=== PATIENT | male | born 1970 | race Caucasian/White ===

== ENCOUNTER 2021-02-24 11:31 | Emergency (ER) | payer SELFPAY ==
[~2021-02-24] VITALS: Ht 177 cm; Wt 108.0 kg
[~2021-02-24 11:31] MED LIST: CYCL10TA9 PO; IBUP800T26 PO; MPR22T TOP; NAPR-243 PO; OXYC-12 PO; SULF-222 PO; SULF1TAB35 PO; TRM50T PO
[2021-02-24] MEDS ORDERED: TETRACAINE 0.5% OPHTH SOLN 4 ML BTL (SINGLE DOSE ONLY) ONE (11:43)
[2021-02-24] MEDS ORDERED: FLUORESCEIN (FLUOR-I-STRIPS) 1 MG STRP ONE (11:43)
--- NOTE | 2021-02-24 11:56 | ED EENT ---
History of Present Illness General Chief Complaint: Eye Problems Stated Complaint: L EYE RED Source: patient Exam Limitations: no limitations History of Present Illness Date Seen by Provider: Feb 24, 2021 Time Seen by Provider: 11:53 Initial Comments To ER with left eye redness since he went fishing few days ago. He does not recall any injury to the nor does he recall any insect flying into the eye or pain or itching of the eye. He was returning home from fishing when his friend noticed that his eye was red. Today, he notices a little unusual sensation in the eye no pain in his vision is normal. Does not wear contacts or glasses Timing/Duration: abrupt Severity: moderate Location: ear (L) Associated Symptoms: denies symptoms Allergies and Home Medications Allergies Coded Allergies: NKANo Known Allergies (Unverified Allergy, Mild, 07/15/09) Home Medications Ibuprofen 800 Mg Tablet, 800 MG PO q8h PRN for PAIN Prescribed by: GLORIA NORMAN on 11/22/14658 Mupirocin 22 Gm Tube, 22 GM TOP BID Prescribed by: NALDO DOZIER on 02/09/142 Naproxen 500 Mg Tablet, 1 EACH PO TID FOR PAIN Prescribed by: NALDO DOZIER on 07/15/09 0946 Oxycodone Hcl/Acetaminophen 1 Each Tablet, 1-2 EACH PO Q6H PRN for PAIN Prescribed by: GLORIA NORMAN on 11/22/14658 Sulfamethoxazole/Trimethoprim 1 Each Tablet, 1 TAB PO BID FOR INFECTION Prescribed by: NALDO DOZIER on 02/09/14 2312 Trimethoprim/Sulfamethoxazole 1 Ea Tablet, 1 EA PO BID Prescribed by: GLORIA NORMAN on 11/22/14658 Patient Home Medication List Home Medication List Reviewed: Yes Review of Systems Review of Systems Constitutional: see HPI Eyes: See HPI Ears: No Symptoms Reported Nose: no symptoms reported Mouth: no symptoms reported Throat: no symptoms reported Respiratory: no symptoms reported Cardiovascular: no symptoms reported Musculoskeletal: no symptoms reported Past Npbbfhb-Qofwsr-Ekkfjt Hx Immunizations Up To Date Tetanus Booster (TDap): Less than 5yrs Past Medical History Reproductive Disorders: No Sexually Transmitted Disease: No HIV/AIDS: No Adverse Reaction/Blood Tranf: No Family Medical History No Pertinent Family Hx Physical Exam Height, Weight, BMI Height: 5'10" Weight: 210lbs. oz. 95.834896ry; BMI Method:Stated General Appearance: WD/WN, no apparent distress Eyes: left eye other (There is no hyphema. There is a subconjunctival hemorrhage to the lateral aspect of the left eye. A small area of this about 1 x 2 mm is slightly elevated and darker, this was likely the initial vessel the cause of this. The blood has subsequently reached out to affect most of the lateral aspect of the eye and the inferior aspect of the eye. No foreign body identified. Upon fluorescein staining there is no [place] sign or abrasion. Intraocular pressure is measured at 16.); bilateral eye PERRL, bilateral eye EOMI Neck: non-tender, full range of motion Respiratory: no respiratory distress, no accessory muscle use Neurologic/Psychiatric: alert, normal mood/affect, oriented x 3 Skin: normal color, warm/dry Progress/Results/Core Measures Results/Orders My Orders Orders - LÓPEZ ALMAGUER APRN Fluorescein Strips (Dxtls-I-Jgoeas) (02/24/21 11:43) Tetracaine 0.5% Ophth Christina Sdv (Tetracai (02/24/21 11:43) Departure Impression Primary Impression: Subconjunctival hemorrhage of left eye Disposition: 01 HOME, SELF-CARE Condition: Stable Departure-Patient Inst. Decision time for Depature: 11:55 Referrals: KANIKA QIU OD,LOCAL PHYSICIAN (PCP) Primary Care Physician Patient Instructions: Subconjunctival Hemorrhage Add. Discharge Instructions: 1. Try not to rub the eye. There is no need for any antibiotic eyedrops. Follow-up with Dr. Garcia for any eye pain or vision troubles. This will take about 2 weeks to resolve. All discharge instructions reviewed with patient and/or family. Voiced understanding. LÓPEZ ALMAGUER APRN Feb 24, 2021 11:56
[2021-02-24] MEDS ORDERED: TETRACAINE 0.5% OPHTH SOLN 4 ML BTL (SINGLE DOSE ONLY) OU ONE (12:00)
[2021-02-24] MEDS ORDERED: FLUORESCEIN (FLUOR-I-STRIPS) 1 MG STRP OU ONE (12:00)
[2021-02-24 12:04] VITALS: BP 158/97
== END 2021-02-24 12:04 | disposition home or self-care (01) ==
LOC: ER 11:31
DX: H11.32 Conjunctival hemorrhage, left eye (principal)
CPT/HCPCS: 99282

== ENCOUNTER 2021-05-06 10:05 | Emergency (ER) | payer SELFPAY ==
[~2021-05-06] VITALS: Ht 177.8 cm; Wt 113.4 kg
--- NOTE | 2021-05-06 10:32 | ED Lower Extremity ---
General Chief Complaint: Lower Extremity Stated Complaint: L KNEE SWOLLEN/PAIN Nursing Triage Note: PT AMB TO [facility] 6 WITH COMPLAINT OF LEFT KNEE PAIN AND SWELLING. 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 STATES KNEE STARTED WITH A BRUISE THEN PROGRESSED TO SWELLING AND REDNESS. Source: patient History of Present Illness Date Seen by Provider: May 06, 2021 Time Seen by Provider: 10:18 Initial Comments PT ARRIVES VIA POV FROM HOME C/O LEFT KNEE PAIN AND SWELLING SINCE YESTERDAY STATES HE WAS KNEELING ALOT YESTERDAY, WORKING ON DECK GRADUALLY BEGAN TO HAVE STIFFNESS AND SORENESS IN KNEE YESTERDAY TODAY HE HAS MORE PAIN AND SWELLING, AND DIFFICULTY WALKING TODAY NO PARESTHESIAS OR MOTOR DEFICITS NO SPECIFIC INJURY TO KNEE NO PRIOR PROBLEMS WITH KNEE TOOK 2 TYLENOL AND 4 IBUPROFEN THIS AM AROUND 0630 WITHOUT RELIEF DENIES ANY MEDICAL PROBLEMS, BUT NEVER GOES TO ANY DOCTOR PCP: NONE Allergies and Home Medications Allergies Coded Allergies: NKANo Known Allergies (Unverified Allergy, Mild, 07/15/09) Patient Home Medication List Home Medication List Reviewed: Yes Cephalexin (Cephalexin) 500 Mg Tablet, 500 MG PO QID Prescribed by: NALDO DOZIER on 05/06/21 1050 Ibuprofen (Ibuprofen) 800 Mg Tablet, 800 MG PO q8h PRN for PAIN Prescribed by: GLORIA NORMAN on 11/22/14 0659 Mupirocin (Bactroban Ointment 22 Gm) 22 Gm Tube, 22 GM TOP BID Prescribed by: NALDO DOZIER on 02/09/14 2312 Naproxen (Naprosyn) 500 Mg Tablet, 1 EACH PO TID Prescribed by: NALDO DOZIER on 07/15/09 0946 Oxycodone Hcl/Acetaminophen (Percocet 5-325 Mg Tablet) 1 Each Tablet, 1-2 EACH PO Q6H PRN for PAIN Prescribed by: GLORIA NORMAN on 11/22/14 0659 Prednisone (Prednisone) 20 Mg Tab, 40 MG PO DAILY Prescribed by: NALDO DOZIER on 05/06/21 1050 Sulfamethoxazole/Trimethoprim (Bactrim DS) 1 Each Tablet, 1 TAB PO BID Prescribed by: NALDO DOZIER on 02/09/14 2312 Tramadol HCl (Ultram) 50 Mg Tablet, 50 MG PO Q4H Prescribed by: NALDO DOZIER on 05/06/21 1051 Trimethoprim/Sulfamethoxazole (Bactrim DS) 1 Ea Tablet, 1 EA PO BID Prescribed by: GLORIA NORMAN on 11/22/14 0659 Review of Systems Constitutional: no symptoms reported Respiratory: no symptoms reported Cardiovascular: no symptoms reported Musculoskeletal: see HPI Skin: other (REDNESS TO KNEE) Psychiatric/Neurological: No Symptoms Reported Past Vzdzuum-Kmxdej-Xfbojg Hx Patient Social History Tobacco Use?: Yes (1 PPD) Tobacco type used: Cigarettes Smoking Status: Current Everyday Smoker Use of E-Cig and/or Vaping dev: No Substance use?: Yes (THC IN PAST) Substance type: Marijuana Additional substance use comme: THC IN PAST Alcohol Use?: Yes Alcohol Frequency: Couple times a week Pt feels they are or have been: No Immunizations Up To Date Tetanus Booster (TDap): Less than 5yrs Past Medical History Surgery/Hospitalization HX: LEFT INGUINAL HERNIA REPAIR Surgeries: Yes Abdominal Respiratory: No Cardiac: No Reproductive Disorders: No Sexually Transmitted Disease: No HIV/AIDS: No Genitourinary: No Gastrointestinal: No Musculoskeletal: No Endocrine: No HEENT: No Cancer: No Psychosocial: No Integumentary: No Blood Disorders: No Adverse Reaction/Blood Tranf: No Family Medical History No Pertinent Family Hx Physical Exam Vital Signs Vital Signs - First Documented 05/06/21 10:14 Temp 36.7 Pulse 92 Resp 16 B/P (MAP) 153/102 (119) Pulse Ox 97 O2 Delivery Room Air Capillary Refill : Height, Weight, BMI Height: 5'10" Weight: 210lbs. oz. 95.590472rw; 35.00 BMI Method:Stated General Appearance: WD/WN, no apparent distress, obese Hips: left hip normal inspection Legs: bilateral leg other (CHRONIC VENOUS STASIS CHANGES TO BILATERAL LOWER LEGS. TRACE EDEMA BILATERALLY) Knees: right knee normal inspection; left knee other (LEFT KNEE WITH MODERATE SWELLING/FIRM, DIFFUSE ANTERIOR KNEE TENDERNESS. MILD ERYTHEMA OVER PATELLA AREA. NO FLUCTUANCE. LIMITED ROM DUE TO PAIN. UNABLE TO DETERMINE LIGAMENT LAXITY DUE TO DISCOMFORT AND SWELLING. HAS TINY VERY OLD APPEARING SCABBED WOUND TO INFERIOR ASPECT OF KNEE, BUT NO SIGNS OF INFECTION DIRECTLY AROUND THIS SCAB. NO DRAINAGE. NO STREAKS. DISTAL MOTOR/SENSORY/VASCULAR INTACT. 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, no motor/sensory deficits, alert, normal mood/affect, oriented x 3 Skin: normal color, warm/dry, other ( ABOVE) Procedures/Interventions Splinting and Joint Reduction : Ivan wrap: Yes Immobilizers: 19 inch Knee Progress/Results/Core Measures Results/Orders My Orders Orders - TASIABRENDONA K DO Knee, Left, 3 Views (05/06/21 10:22) Ivan Bandage (05/06/21 10:47) Knee Immobilizer (05/06/21 10:47) Vital Signs/I&O 05/06/21 10:14 Temp 36.7 Pulse 92 Resp 16 B/P (MAP) 153/102 (119) Pulse Ox 97 O2 Delivery Room Air Blood Pressure Mean: 119 Progress Progress Note : Progress Note PT DECLINES CRUTCHES Diagnostic Imaging Comments XRAYS LEFT KNEE--PER RADIOLOGIST REPORT AT 1047 KNEE, LEFT, 3 VIEWS Indication: Left knee pain AP, oblique, lateral views left knee are obtained No fracture or acute bony abnormality seen. There is soft tissue swelling anteriorly. Joint spaces are unremarkable. IMPRESSION: Negative left knee. Departure Impression Primary Impression: Pain and swelling of left knee Additional Impression: POSSIBLE PREPATELLAR BURSITIS AND/OR CELLULITIS Disposition: 01 HOME, SELF-CARE Condition: Stable Departure-Patient Inst. Decision time for Depature: 10:48 Referrals: NO,LOCAL PHYSICIAN (PCP) Primary Care Physician SOPHY GIANG MD Patient Instructions: Cellulitis (Skin Infection), Adult (DC), How to Use an Elastic Bandage, Knee Immobilizer (DC), Knee Pain ED, Prepatellar Bursitis (DC) Add. Discharge Instructions: ICE TO AREA AT 20 MINUTE INTERVALS IVAN WRAP AND KNEE IMMOBILIZER AT ALL TIMES ELEVATE LEG AT ALL TIMES FOLLOW UP WITH DR. GIANG THIS WEEK FOR FURTHER CARE-CALL TODAY TO MAKE AN APPOINTMENT All discharge instructions reviewed with patient and/or family. Voiced understanding. Scripts Tramadol HCl (Ultram) 50 Mg Tablet 50 MG PO Q4H for Pain, #20 TAB Prov: BRENDON DOZIERA K DO 05/06/21 Prednisone (Prednisone) 20 Mg Tab 40 MG PO DAILY, #6 TAB 0 Refills Prov: TASIANALDO DO 05/06/21 Cephalexin (Cephalexin) 500 Mg Tablet 500 MG PO QID, #30 TAB Prov: NALDO DOZIER DO 05/06/21 Work/School Note: Work Release Form Date Seen in the Emergency Department: May 06, 2021 Return to Work: May 09, 2021 Restrictions: Need Release from Doctor NALDO DOZIER DO May 06, 2021 10:32
--- NOTE | 2021-05-06 10:43 | Diagnostic Imaging Report ---
Indication: Left knee pain AP, oblique, lateral views left knee are obtained No fracture or acute bony abnormality seen. There is soft tissue swelling anteriorly. Joint spaces are unremarkable. IMPRESSION: Negative left knee. Dictated by: Dictated on workstation # [id number]
[2021-05-06] MEDS ORDERED: CEPH500T PO (10:50)
[2021-05-06] MEDS ORDERED: PRD20T PO (10:50)
[2021-05-06] MEDS ORDERED: TRAM-42 PO (10:50)
[2021-05-06 11:12] VITALS: BP 153/102
== END 2021-05-06 11:12 | disposition home or self-care (01) ==
LOC: EDUNIT# 10:05 → ER 10:06
DX: M25.462 Effusion, left knee (principal); E66.9 Obesity, unspecified; F17.210 Nicotine dependence, cigarettes, uncomplicated; Z68.35 Body mass index [BMI] 35.0-35.9, adult
CPT/HCPCS: 73562; 99283; L1830

== ENCOUNTER 2023-03-15 14:50 | Emergency (ER) | payer SELFPAY ==
[~2023-03-15] VITALS: Ht 177.8 cm; Wt 102.1 kg
[~2023-03-15 14:50] MED LIST changes: +CEPH500T PO; +PRD20T PO; +TRAM-42 PO
--- NOTE | 2023-03-15 15:04 | ED Upper Extremity ---
General Chief Complaint: Upper Extremity Stated Complaint: RT FINGER INJ Source: patient Exam Limitations: no limitations (MIGUEL RODRIGES) History of Present Illness Date Seen by Provider: Mar 15, 2023 Time Seen by Provider: 15:02 Initial Comments Patient is a 52-year-old male who presents ED with right hand pain. Patient states Wednesday he fell out of the chair while sleeping. Landed awkwardly on his right hand. Patient is complaining of pain to his right index finger and knuckle. Noted pain initially after the injury. Has been taking ibuprofen and Tylenol with very minimal improvement. Increased swelling and limited range of motion. Patient denies history of previous injury. Denies of any numbness and tingling, obvious bone deformity, fever, chills, redness. Does report some increased swelling to the right dorsal hand. (MIGUEL RODRIGES) Allergies and Home Medications Allergies Coded Allergies: NKANo Known Allergies (Unverified Allergy, Mild, 07/15/09) Patient Home Medication List Home Medication List Reviewed: Yes (MIGUEL RODRIGES) Cephalexin (Cephalexin) 500 Mg Tablet, 500 MG PO QID Prescribed by: NALDO DOZIER on 05/06/21 1050 Ibuprofen (Ibuprofen) 800 Mg Tablet, 800 MG PO q8h PRN for PAIN Prescribed by: GLORIA NORMAN on 11/22/14658 Mupirocin (Bactroban Ointment 22 Gm) 22 Gm Tube, 22 GM TOP BID Prescribed by: NALDO DOZIER on 02/09/14 231 Naproxen (Naprosyn) 500 Mg Tablet, 1 EACH PO TID Prescribed by: NALDO DOZIER on 07/15/09 0946 Oxycodone Hcl/Acetaminophen (Percocet 5-325 Mg Tablet) 1 Each Tablet, 1-2 EACH PO Q6H PRN for PAIN Prescribed by: GLORIA NORMAN on 11/22/14658 Prednisone (Prednisone) 20 Mg Tab, 40 MG PO DAILY Prescribed by: NALDO DOZIER on 05/06/21 1050 Sulfamethoxazole/Trimethoprim (Bactrim DS) 1 Each Tablet, 1 TAB PO BID Prescribed by: NALDO DOZIER on 02/09/14 2312 Tramadol HCl (Ultram) 50 Mg Tablet, 50 MG PO Q4H Prescribed by: NALDO DOZIER on 05/06/21 1051 Trimethoprim/Sulfamethoxazole (Bactrim DS) 1 Ea Tablet, 1 EA PO BID Prescribed by: GLORIA NORMAN on 11/22/14 0659 Review of Systems Constitutional: No chills, No diaphoresis, No malaise, No weakness EENTM: No ear pain, No blurred vision, No double vision Respiratory: No cough, No dyspnea on exertion Cardiovascular: No chest pain Gastrointestinal: No abdominal pain, No diarrhea, No nausea, No vomiting Genitourinary: No decreased output, No discharge Musculoskeletal: No back pain; joint pain, joint swelling, muscle pain Skin: No change in color, No change in hair/nails (MIGUEL RODRIGES) All Other Systems Reviewed Negative Unless Noted: Yes (MIGUEL RODRIGES) Past Mbhcxcx-Urfuel-Vcgslh Hx Patient Social History Tobacco Use?: Yes Tobacco type used: Cigarettes Smoking Status: Heavy Tobacco Smoker Smokeless Tobacco Frequency: Never a User Use of E-Cig and/or Vaping dev: No Use of E-Cig and/or Vaping Osman: Never a User Substance use?: No Alcohol Use?: No Pt feels they are or have been: No (MIGUEL RODRIGES) Immunizations Up To Date Tetanus Booster (TDap): Less than 5yrs (MIGUEL RODRIGES) Past Medical History Surgery/Hospitalization HX: LEFT INGUINAL HERNIA REPAIR Surgeries: Yes Abdominal Respiratory: No Cardiac: No Reproductive Disorders: No Sexually Transmitted Disease: No HIV/AIDS: No Genitourinary: No Gastrointestinal: No Musculoskeletal: No Endocrine: No HEENT: No Cancer: No Psychosocial: No Integumentary: No Blood Disorders: No Adverse Reaction/Blood Tranf: No (MIGUEL RODRIGES) Family Medical History No Pertinent Family Hx (MIGUEL RODRIGES) Physical Exam Vital Signs Vital Signs - First Documented 03/15/23 03/15/23 14:54 15:22 Temp 36.5 Pulse 112 Resp 17 B/P (MAP) 159/116 (130) Pulse Ox 98 O2 Delivery Room Air (STEVEN PARRA MD) Vital Signs Capillary Refill : (MIGUEL RODRIGES) Height, Weight, BMI Height: 5'10" Weight: 210lbs. oz. 95.845091va; 35.00 BMI Method:Stated General Appearance: WD/WN, no apparent distress HEENT: PERRL/EOMI, normal ENT inspection, TMs normal, pharynx normal Neck: non-tender, full range of motion, supple Cardiovascular: regular rate, rhythm, no edema, no gallop, no JVD Respiratory: chest non-tender, lungs clear, normal breath sounds, no respiratory distress, no accessory muscle use Gastrointestinal: normal bowel sounds, non tender, soft, no organomegaly Back: normal inspection, no CVA tenderness Shoulder: normal inspection, non-tender, no evidence of injury Elbow/Forearm: normal inspection, non-tender, no evidence of injury, Right Wrist: Yes normal inspection, Yes non-tender, Yes no evidence of injury Hand: Right, limited ROM (Limited range of motion of the right first MCP joint. Swelling noted to worsen.), stiffness, swelling (Tenderness to palpate right first MCP joint. 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 Patient fell on Wednesday. No significant crepitus but notable swelling. X-ray was ordered which did not note any acute fracture. Has been taking ibuprofen at home. Does have some limited range of motion likely secondary to swelling. Discussed with patient this is likely a hand sprain. Ice and Ivan wrap and anti-inflammatories. Orthopedic follow-up in 7 to 10 days if pain progress. If any worsening symptoms return back to ED for further evaluation (MIGUEL RODRIGES) Impression Primary Impression: Hand sprain Disposition: 01 HOME, SELF-CARE Condition: Stable Departure-Patient Inst. Decision time for Depature: 15:19 (MIGUEL RODRIGES) Referrals: NO,LOCAL PHYSICIAN (PCP) Primary Care Physician MATTY CHANDLER MD Patient Instructions: Hand Pain (DC) Add. Discharge Instructions: Recommend ice, anti-inflammatories such as naproxen or ibuprofen. Ivan wrap for support. Orthopedic follow-up in 7 to 10 days if pain progress All discharge instructions reviewed with patient and/or family. Voiced understanding. ATTENDING PHYSICIAN NOTE: I was physically present as attending physician in the emergency department during the care of this patient, but I was not directly involved in the decision making or delivery of care for this patient. (STEVEN PARRA MD) MIGUEL RODRIGES Mar 15, 2023 15:04 STEVEN PARRA MD Mar 17, 2023 13:18
--- NOTE | 2023-03-15 15:17 | Diagnostic Imaging Report ---
INDICATION: Fall with right hand pain. TECHNIQUE: AP, oblique, and lateral views of the right hand are obtained. FINDINGS: No fracture or acute bony abnormality is seen. There is diffuse degenerative change throughout the carpal bones as well as throughout the interphalangeal joints. IMPRESSION: Degenerative changes with no acute abnormality in the right hand. Dictated by: Dictated on workstation # [id number]
[2023-03-15 15:22] VITALS: BP 138/69
== END 2023-03-15 15:22 | disposition home or self-care (01) ==
LOC: EDUNIT# 14:50 → ER 14:53
DX: S63.91XA Sprain of unspecified part of right wrist and hand, initial encounter (principal); F17.210 Nicotine dependence, cigarettes, uncomplicated; Z28.310 Unvaccinated for COVID-19; W07.XXXA Fall from chair, initial encounter
CPT/HCPCS: 73130; 99281